=== PATIENT | male | born 1990 | race Caucasian/White ===

== ENCOUNTER 2020-12-14 13:02 | Emergency (ER) | payer SELFPAY ==
[2020-12-14] MEDS ORDERED: CYCLOBENZAPRINE10 MG PO (14:54)
[2020-12-14] MEDS ORDERED: NORCO 5-325 TA1 EACH PO (14:54)
[2020-12-14] MEDS ORDERED: MEDROL 4MG DOSEP4 MG PO (14:54)
[2020-12-14] MEDS ORDERED: ETODOLAC500 MG PO (14:54)
== END 2020-12-14 16:03 | disposition home or self-care (01) ==
LOC: FER 13:02
DX: M51.16 Intervertebral disc disorders with radiculopathy, lumbar region (principal); R03.0 Elevated blood-pressure reading, without diagnosis of hypertension
CPT/HCPCS: 72131; 96372; J1170; J1885